=== PATIENT | female | born 1990 | race Caucasian/White ===

== ENCOUNTER → 2017-07-02 | Outpatient (CLI) | payer OTHER ==
[2017-07-02 10:40] LABS: BASO % 0.3 % (0.0-1.0); EOS # 0.1 10*3/uL (0.0-0.4); EOS % 1.2 % (1.0-4.0); HEMATOCRIT 31.5 % (37.0-47.0); HEMOGLOBIN 10.1 g/dl (12.0-16.0); LYMPH # 1.3 10*3/uL (1.3-4.4); LYMPH % 17.8 % (27.0-41.0); MEAN CORPUSCULAR HGB 28.5 pg (27.0-31.0); MEAN CORPUSCULAR HGB CONC 32.1 g/dl (33.0-37.0); MEAN PLATELET VOLUME 10.8 fl (9.6-12.3); MONO # 0.6 10*3/uL (0.1-1.0); MONO % 7.5 % (3.0-9.0); NEUT # 5.5 10*3/uL (2.3-7.9); NEUT % 72.7 % (47.0-73.0); PLATELET COUNT AUTOMATED 220 10*3/uL (130-400); RED BLOOD COUNT 3.54 10*6/uL (4.10-5.10); RED CELL DISTRI WIDTH 12.9 % (0-14.5); WHITE BLOOD COUNT 7.5 10*3/uL (4.8-10.8)
[2017-07-02 11:11] LABS: ALBUMIN 2.3 gm/dl (3.1-4.5); BUN 5 mg/dl (7-24); CHLORIDE 108 mmol/L (98-107); POTASSIUM 3.7 mmol/L (3.5-5.1); SGOT/AST 12 IU/L (3-35); SGPT/ALT 16 U/L (12-78); SODIUM 139 mmol/L (136-145); TOTAL PROTEIN 5.7 gm/dL (6.4-8.2)
[2017-07-02 11:20] LABS: ALKALINE PHOSPHATASE 104 U/L (45-117)
== END | disposition home or self-care (01) ==
LOC: LAB 06-23 09:34
PROVIDERS: Internal Medicine
DX: O24.419 Gestational diabetes mellitus in pregnancy, unspecified control (principal); Z3A.00 Weeks of gestation of pregnancy not specified

== ENCOUNTER → 2017-08-07 | Outpatient (CLI) | payer OTHER ==
[2017-08-07 15:15] LABS: FREE T4 1.05 ng/dl (0.76-1.46)
[2017-08-07 15:21] LABS: THYROID STIM HORMONE (HS) 1.57 uIU/ml (0.358-4.75)
== END | disposition home or self-care (01) ==
LOC: LAB 13:24
PROVIDERS: Family Medicine
DX: E03.9 Hypothyroidism, unspecified (principal); I10 Essential (primary) hypertension

== ENCOUNTER → 2017-11-24 | Outpatient (CLI) | payer OTHER ==
[2017-11-24 13:11] LABS: HEMATOCRIT 39.4 % (37.0-47.0); HEMOGLOBIN 13.3 g/dl (12.0-16.0); MEAN CORPUSCULAR HGB 30.4 pg (27.0-31.0); MEAN CORPUSCULAR HGB CONC 33.8 g/dl (33.0-37.0); MEAN PLATELET VOLUME 9.6 fl (9.6-12.3); RED BLOOD COUNT 4.38 10*6/uL (4.10-5.10); RED CELL DISTRI WIDTH 13.6 % (0-14.5); WHITE BLOOD COUNT 6.8 10*3/uL (4.8-10.8)
[2017-11-24 13:43] LABS: ALKALINE PHOSPHATASE 72 U/L (45-117); BUN 8 mg/dl (7-24); CHLORIDE 105 mmol/L (98-107); CPK 187 U/L (26-192); CREATININE 0.87 mg/dL (0.55-1.02); POTASSIUM 4.1 mmol/L (3.5-5.1); SGOT/AST 20 IU/L (3-35); SGPT/ALT 35 U/L (12-78); SODIUM 140 mmol/L (136-145); TOTAL PROTEIN 7.6 gm/dL (6.4-8.2)
[2017-11-25 07:06] LABS: RHEUMATOID ARTHRITIS FACTOR <10.0 IU/mL (0.0-13.9)
== END | disposition home or self-care (01) ==
LOC: LAB 12:43
PROVIDERS: Family Medicine
DX: M79.1 Myalgia (principal); M25.569 Pain in unspecified knee

== ENCOUNTER → 2019-02-25 | Outpatient (CLI) | payer OTHER ==
[2019-02-25 09:04] LABS: HEMATOCRIT 32.1 % (37.0-47.0); MEAN CELL VOLUME 88.9 fl (81.0-99.0); MEAN CORPUSCULAR HGB 27.7 pg (27.0-31.0); MEAN CORPUSCULAR HGB CONC 31.2 g/dl (33.0-37.0); MEAN PLATELET VOLUME 10.3 fl (9.6-12.3); RED BLOOD COUNT 3.61 10*6/uL (4.10-5.10); RED CELL DISTRI WIDTH 13.2 % (0-14.5); WHITE BLOOD COUNT 7.2 10*3/uL (4.8-10.8)
[2019-02-25 09:17] LABS: ALBUMIN 2.7 gm/dl (3.1-4.5); BUN 4 mg/dl (7-24); CHLORIDE 106 mmol/L (98-107); CHOLESTEROL 208 mg/dL (<200); CREATININE 0.52 mg/dL (0.55-1.02); POTASSIUM 3.7 mmol/L (3.5-5.1); SGOT/AST 11 IU/L (3-35); SGPT/ALT 13 U/L (12-78); SODIUM 139 mmol/L (136-145); TRIGLYCERIDES 213 mg/dl (<150); VLDL CHOLESTEROL 43 mg/dL (6-40)
[2019-02-25 09:25] LABS: ALKALINE PHOSPHATASE 65 U/L (45-117); FREE T4 1.01 ng/dl (0.76-1.46); HDL CHOLESTEROL 66 mg/dl (40-60); LDL CHOLESTEROL 99 mg/dL (9-159); TOTAL PROTEIN 6.2 gm/dL (6.4-8.2)
== END | disposition home or self-care (01) ==
LOC: LAB 08:29
PROVIDERS: Family Medicine
DX: Z13.220 Encounter for screening for lipoid disorders (principal); E03.9 Hypothyroidism, unspecified; R53.83 Other fatigue

== ENCOUNTER → 2020-06-25 | Outpatient (CLI) | payer OTHER ==
[2020-06-25 09:10] LABS: HEMATOCRIT 40.1 % (37.0-47.0); MEAN CORPUSCULAR HGB 29.4 pg (27.0-31.0); MEAN CORPUSCULAR HGB CONC 31.9 g/dl (33.0-37.0); MEAN PLATELET VOLUME 10.3 fl (9.6-12.3); RED BLOOD COUNT 4.36 10*6/uL (4.10-5.10); RED CELL DISTRI WIDTH 12.4 % (0-14.5); WHITE BLOOD COUNT 5.3 10*3/uL (4.8-10.8)
[2020-06-25 09:40] LABS: ALKALINE PHOSPHATASE 51 U/L (45-117); BUN 8 mg/dl (7-24); CHLORIDE 110 mmol/L (98-107); CHOLESTEROL 148 mg/dL (<200); FREE T4 1.08 ng/dl (0.76-1.46); HDL CHOLESTEROL 44 mg/dl (40-60); LDL CHOLESTEROL 87 mg/dL (9-159); POTASSIUM 4.1 mmol/L (3.5-5.1); SGOT/AST 13 IU/L (3-35); SGPT/ALT 30 U/L (12-78); SODIUM 139 mmol/L (136-145); TOTAL PROTEIN 7.5 gm/dL (6.4-8.2); TRIGLYCERIDES 84 mg/dl (<150); VLDL CHOLESTEROL 17 mg/dL (6-40)
== END | disposition home or self-care (01) ==
LOC: LAB 08:26
PROVIDERS: ATTEND Family Medicine
DX: E03.9 Hypothyroidism, unspecified (principal); E78.00 Pure hypercholesterolemia, unspecified; D64.9 Anemia, unspecified

== ENCOUNTER → 2022-05-05 | Outpatient (CLI) | payer OTHER ==
[2022-05-05 08:24] LABS: HEMATOCRIT 40.1 % (37.0-47.0); MEAN CELL VOLUME 92.6 fl (81.0-99.0); MEAN CORPUSCULAR HGB 30.7 pg (27.0-31.0); MEAN CORPUSCULAR HGB CONC 33.2 g/dl (33.0-37.0); MEAN PLATELET VOLUME 9.6 fl (9.6-12.3); RED BLOOD COUNT 4.33 10*6/uL (4.10-5.10); RED CELL DISTRI WIDTH 11.9 % (0-14.5); WHITE BLOOD COUNT 4.5 10*3/uL (4.8-10.8)
[2022-05-05 08:39] LABS: ALKALINE PHOSPHATASE 51 U/L (45-117); BUN 8 mg/dl (7-24); CHLORIDE 111 mmol/L (98-107); CHOLESTEROL 154 mg/dL (<200); CREATININE 0.64 mg/dL (0.55-1.02); LDL CHOLESTEROL 85 mg/dL (9-159); POTASSIUM 4.3 mmol/L (3.5-5.1); SGOT/AST 21 IU/L (3-35); SGPT/ALT 36 U/L (12-78); SODIUM 143 mmol/L (136-145); TOTAL PROTEIN 6.9 gm/dL (6.4-8.2); TRIGLYCERIDES 102 mg/dl (<150)
== END | disposition home or self-care (01) ==
LOC: LAB 08:10
PROVIDERS: ATTEND Family Medicine
DX: Z00.00 Encounter for general adult medical examination without abnormal findings (principal); M25.551 Pain in right hip; M25.552 Pain in left hip; M25.511 Pain in right shoulder; M25.512 Pain in left shoulder; E03.9 Hypothyroidism, unspecified; L68.0 Hirsutism

== ENCOUNTER → 2022-06-09 | Outpatient (CLI) | payer OTHER ==
[2022-06-09 08:46] LABS: FREE T4 1.17 ng/dl (0.76-1.46)
[2022-06-09 08:52] LABS: THYROID STIM HORMONE (HS) 10.8 uIU/ml (0.358-4.75)
== END | disposition home or self-care (01) ==
LOC: LAB 07:49
PROVIDERS: ATTEND Family Medicine
DX: E03.9 Hypothyroidism, unspecified (principal)

== ENCOUNTER → 2024-03-26 | Outpatient (CLI) | payer OTHER ==
[2024-03-26 08:54] LABS: HEMATOCRIT 41.3 % (37.0-47.0); MEAN CELL VOLUME 92.6 fl (81.0-99.0); MEAN CORPUSCULAR HGB 30.5 pg (27.0-31.0); MEAN CORPUSCULAR HGB CONC 32.9 g/dl (33.0-37.0); MEAN PLATELET VOLUME 9.7 fl (9.6-12.3); RED BLOOD COUNT 4.46 10*6/uL (4.10-5.10); RED CELL DISTRI WIDTH 11.9 % (0-14.5); WHITE BLOOD COUNT 6.4 10*3/uL (4.8-10.8)
[2024-03-26 10:00] LABS: ALKALINE PHOSPHATASE 54 U/L (46-116); BUN 7 mg/dl (9-23); CHLORIDE 109 mmol/L (98-107); CHOLESTEROL 153 mg/dL (<200); FREE T4 0.96 ng/dl (0.89-1.76); LDL CHOLESTEROL 78 mg/dL (9-159); POTASSIUM 3.8 mmol/L (3.4-5.1); SGPT/ALT 30 U/L (5-49); TOTAL PROTEIN 7.3 gm/dL (6.0-8.0); TRIGLYCERIDES 105 mg/dl (<150)
== END | disposition home or self-care (01) ==
LOC: LAB 08:40
PROVIDERS: ATTEND Family Medicine
DX: R53.83 Other fatigue (principal); E03.9 Hypothyroidism, unspecified; R63.4 Abnormal weight loss; I25.10 Atherosclerotic heart disease of native coronary artery without angina pectoris